=== PATIENT | male | born 1950 | race Caucasian/White ===

== ENCOUNTER → 2023-04-27 07:41 | Outpatient (REF) | payer MEDICARE, SELFPAY | LOC: RAD 07:41 | PROVIDERS: ATTENDING PHYSICIAN Physician Assistant; FAMILY PHYSICIAN Family Medicine | DX: Z13.820 Encounter for screening for osteoporosis (principal); E83.52 Hypercalcemia; M81.0 Age-related osteoporosis without current pathological fracture | CPT/HCPCS: 77080; 77081; 78071; A9500 ==

== ENCOUNTER → 2023-05-10 07:51 | Outpatient (REF) | payer MEDICARE, SELFPAY | LOC: HWRAD 07:51 | PROVIDERS: ATTENDING PHYSICIAN Physician Assistant; FAMILY PHYSICIAN Family Medicine | DX: E83.52 Hypercalcemia (principal) | CPT/HCPCS: 76536 ==

== ENCOUNTER 2023-07-04 06:10 | Day surgery (SDC) | payer MEDICARE, SELFPAY ==
[2023-06-20 08:54] LABS: Hematocrit 39.5 % (39.0-52.0); Hemoglobin 13.2 g/dL (13.0-18.0); Mean Corp Hgb Conc. 33.4 g/dL (33.0-37.0); Mean Corpuscular Hgb 30.1 pg (27.0-31.0); Mean Corpuscular Volume 90.2 fL (80.0-94.0); Mean Platelet Volume 10.1 fL (7.4-10.4); Platelet Count 266 10^3/uL (130-400); Red Blood Cell Count 4.38 10^6/uL (4.70-6.10); Red Cell Dist. Width 12.9 % (11.5-14.5); White Blood Cell Count 6.3 10^3/uL (4.8-10.8)
[2023-06-20 09:03] LABS: INR 1.06; PT 13.6 Sec (11.4-14.6)
[2023-06-20 09:09] VITALS: BMI 29.7
[2023-06-20 09:28] LABS: ALT (SGPT) 37 U/L (0-50); AST (SGOT) 32 U/L (17-59); Albumin 4.3 g/dl (3.5-5.0); Alkaline Phosphatase 109 U/L (38-126); Blood Urea Nitrogen 18 mg/dl (9-20); Calcium 10.6 mg/dl (8.4-10.2); Carbon Dioxide 24 mmol/L (22-30); Chloride 104 mmol/L (98-107); Estimated Creatinine Clearance 50 ml/min; Glucose 126 mg/dl (70-99); Potassium 4.3 mmol/L (3.5-5.1); Sodium 137 mmol/L (135-145); Total Bilirubin 0.5 mg/dl (0.2-1.3); Total Protein 6.8 g/dl (6.3-8.2); eGFR > 60.00
[2023-07-04] VITALS (9 sets, daily range): BP systolic 136–163; BP diastolic 70–87; BMI 29.7
[2023-07-04 06:43] LABS: Glucose - Point of Care 154 mg/dl (70-99)
[2023-07-04] MEDS: NORMOSOL-R 1000 IV (06:46)
[2023-07-04] MEDS: NEURONTIN 300 MG PO (06:46)
[2023-07-04] MEDS: TYLENOL 1000 MG PO (06:46)
[2023-07-04] MEDS: HEPARIN 5000 UNITS SC (06:47)
[2023-07-04 08:30] LABS: Turbo PTH 166.4 pg/ml (13.6-85.8)
[2023-07-04 09:20] LABS: Turbo PTH 42.6 pg/ml (13.6-85.8)
--- NOTE | 2023-07-04 09:30 | OR.RPT ---
Operative Report
Operative Report
Date of Operation: July 04, 2023
Preoperative Diagnosis: �Hyperparathyroidism - E210
Postoperative Diagnosis: Same
Surgeon: Domenic Thomas M.D.
Operation: Minimally Invasive Right Superior Parathyroidectomy - 96331
Anesthesia: GET
Estimated Blood Loss: 3 cc
Drains: None
Specimen: Right superior neck nodule, rule out parathyroid adenoma
Complications: �None
Procedure:
The patient was taken to the operating room and placed in the usual supine position. After adequate general endotracheal anesthesia was established, the patient's neck was extended, prepped, and draped in the typical sterile fashion. A 4 cm
transcervical incision was made two fingerbreadths above the sternal notch. The skin incision was made with the #15 blade, and this was taken through the skin into the subcutaneous tissue. The underlying platysma muscle was divided, and subplatysmal
flaps were created superiorly to the thyroid cartilage and inferiorly to the sternal notch. Strap muscles were identified and at the midline.
Attention was turned to the patient's right side of the neck. The right thyroid lobe was mobilized medially. During this process, the right recurrent laryngeal nerve was identified and preserved throughout the surgery. The right upper neck nodule
was identified and noted to be enlarged, excised, and sent to the pathology department, which showed a hypercellular parathyroid gland. The normal-appearing right inferior parathyroid gland was identified and preserved. The intraoperative PTH levels
normalized.
After obtaining adequate hemostasis, the strap muscles were reapproximated with #3-0 Vicryl in a running fashion. The platysma muscle was reapproximated with #3-0 Vicryl in an interrupted fashion, and the skin was approximated with #4-0 Monocryl in
a running subcuticular fashion. The Steri-Strips and sterile dressings were placed. The patient tolerated the procedure well. The final instrument, needle, and sponge counts were correct. The patient was extubated and transferred to the PACU.
[2023-07-04 09:49] LABS: Glucose - Point of Care 161 mg/dl (70-99)
[2023-07-04 11:21] LABS: Glucose - Point of Care 171 mg/dl (70-99)
== END 2023-07-04 11:50 | disposition home or self-care (01) ==
LOC: SDS 06:10
PROVIDERS: ATTENDING PHYSICIAN Surgery; FAMILY PHYSICIAN Family Medicine
DX: D35.1 Benign neoplasm of parathyroid gland (principal); E21.0 Primary hyperparathyroidism
CPT/HCPCS: 60500; 88305; 88332; 36415; 80053; 82962; 83970; 85027; 85610; 85730; 88331; 93005

== ENCOUNTER → 2023-10-02 12:26 | Outpatient (REF) | payer MEDICARE, SELFPAY | LOC: RAD 12:26 | PROVIDERS: ATTENDING PHYSICIAN Internal Medicine; FAMILY PHYSICIAN Family Medicine | DX: I25.10 Atherosclerotic heart disease of native coronary artery without angina pectoris (principal); I65.29 Occlusion and stenosis of unspecified carotid artery | CPT/HCPCS: 93880 ==

== ENCOUNTER → 2024-08-23 10:56 | Outpatient (REF) | payer MEDICARE, SELFPAY | LOC: HWRCS 10:56 | PROVIDERS: ATTENDING PHYSICIAN Internal Medicine; FAMILY PHYSICIAN Family Medicine | DX: R07.9 Chest pain, unspecified (principal); I25.10 Atherosclerotic heart disease of native coronary artery without angina pectoris; E66.9 Obesity, unspecified; R06.09 Other forms of dyspnea | CPT/HCPCS: 93306 ==

== ENCOUNTER 2024-09-05 06:41 | Day surgery (SDC) | payer MEDICARE, SELFPAY ==
[2024-09-03 10:40] VITALS: BMI 29.9
[2024-09-03 11:10] LABS: Hematocrit 40.6 % (39.0-52.0); Mean Corp Hgb Conc. 34.5 g/dL (33.0-37.0); Mean Platelet Volume 9.6 fL (7.4-10.4); Platelet Count 326 10^3/uL (130-400); Red Blood Cell Count 4.51 10^6/uL (4.70-6.10); Red Cell Dist. Width 12.8 % (11.5-14.5); White Blood Cell Count 8.6 10^3/uL (4.8-10.8)
[2024-09-03 11:26] LABS: ALT (SGPT) 30 U/L (0-50); AST (SGOT) 29 U/L (17-59); Albumin 5.1 g/dl (3.5-5.0); Alkaline Phosphatase 97 U/L (38-126); Blood Urea Nitrogen 21 mg/dl (9-20); Carbon Dioxide 21 mmol/L (22-30); Chloride 109 mmol/L (98-107); Estimated Creatinine Clearance 53 ml/min; Glucose 111 mg/dl (70-99); Potassium 4.6 mmol/L (3.5-5.1); Sodium 141 mmol/L (135-145); Total Bilirubin 0.8 mg/dl (0.2-1.3); Total Protein 7.8 g/dl (6.3-8.2); eGFR 57.29
[2024-09-04 06:00] VITALS: BMI 28.4
[2024-09-05] VITALS (13 sets, daily range): BP systolic 120–165; BP diastolic 63–86; BMI 28.4
[2024-09-05] MEDS: LOW STRENGTH ASPIRIN 81 MG PO (07:36)
[2024-09-05] MEDS: NSS 254 ML IV (07:37)
[2024-09-05 07:39] LABS: Glucose - Point of Care 143 mg/dl (70-99)
--- NOTE | 2024-09-05 08:32 | ITS.CL.CATH ---
Sulfuric Acid Plant Operator - Catheterization
Cardiac Catheterization
Procedure Report:
CARDIAC CATHETERIZATION REPORT
Date of Procedure: 09/05/2024
Referring: Nikita Aviles M.D., Ph.D.
INDICATION: Chest pain, abnormal stress test, known coronary artery disease.
PROCEDURE:
1. Left heart catheterization.
2. Coronary angiography.
A total of 22 minutes of procedural/moderate sedation was utilized. An independent emergency medical technician was present to assist with and help manage the patient's level of consciousness and physiologic status.
ACCESS:
1. 6 [place] right radial artery using a modified Seldinger technique.
CATHETERS:
1. 5 [place] JR4.
2. 5 [place] JL 3.5.
HEMODYNAMIC DATA
Weight (kg): 84.8
AO (s/d/x, mmHg): 140/70/93
LV (s/x mmHg): 140/6 (catheter fling noted on tracing)
LEFT VENTRICULOGRAPHY: Not performed.
CORONARY ANGIOGRAPHY
Dominance: Right.
Left Main: Normal size, trifurcating vessel. There is no coronary artery disease.
LAD: Normal size vessel that is densely calcified and diffusely diseased with a 95% lesion in its ostium and proximal vessel. The distal vessel is supplied by faint collaterals from the RCA.
Ramus: Small to medium size vessel supplying a significant portion of the anterolateral wall. There is no coronary artery disease.
Circumflex: Normal size, nondominant vessel giving rise to 1 obtuse marginal. There are luminal irregularities throughout the vessel. There is a 30% lesion in the ostium of OM1. There is a 30-40% lesion in the midportion of OM1.
RCA: Large size, dominant vessel with a large posterolateral arcade. The entire artery is densely calcified with a 30% lesion in its proximal margin. Collaterals are observed from the septal perforators and terminal vessel supplying the distal
LAD.
INTERVENTION(S)
None.
Closure Device: Vascular band.
Radiation (mGy): 356.48
DAP (cm2.Gy): 25.0235
Fluoroscopy time (minutes): 3.3
CONCLUSIONS
1. Right dominant circulation with dense calcification throughout the entire coronary tree, a 30% lesion in the proximal RCA, a 30% lesion in the proximal OM1, 30-40% lesion in the midportion of OM1 and a 95% lesion in the ostium and proximal LAD
that functions as a PAYROLL EXAMINER. The distal LAD is supplied by faint collaterals from the RCA.
2. Normal filling pressures (LVEDP = 6 mmHg at 84.8 kg).
RECOMMENDATIONS:
1. Expectant management after cardiac catheterization via right radial approach.
2. Limited weight bearing on the right wrist for one week.
3. Consultation with CT surgery regarding optimal strategy including possible MIDCAB versus continued medical therapy.
4. Aggressive secondary prevention. Increase rosuvastatin to 20 mg daily. Goal LDL <55.
5. OMT/GDMT as hemodynamics will tolerate.
Copy to: Nikita Aviles M.D., Ph.D., Gladys Child D.O., ANILA Ascencio
Bakari Izquierdo, , FACC, FACP
== END 2024-09-05 11:36 | disposition home or self-care (01) ==
LOC: CATH 06:41
PROVIDERS: ATTENDING PHYSICIAN Internal Medicine Cardiovascular Disease; FAMILY PHYSICIAN Family Medicine; OTHER PHYSICIAN Internal Medicine
DX: I25.10 Atherosclerotic heart disease of native coronary artery without angina pectoris (principal); R94.39 Abnormal result of other cardiovascular function study; R07.9 Chest pain, unspecified; E78.2 Mixed hyperlipidemia; I10 Essential (primary) hypertension; Z79.82 Long term (current) use of aspirin; Z79.4 Long term (current) use of insulin; Z79.84 Long term (current) use of oral hypoglycemic drugs; Z79.899 Other long term (current) drug therapy; I12.9 Hypertensive chronic kidney disease with stage 1 through stage 4 chronic kidney disease, or unspecified chronic kidney disease; E11.22 Type 2 diabetes mellitus with diabetic chronic kidney disease; N18.31 Chronic kidney disease, stage 3a
CPT/HCPCS: 99152; 36415; 80053; 82962; 85027; 93005; 93458; C1894; Q9967

== ENCOUNTER 2024-10-09 04:50 | Inpatient (IN) | payer MEDICARE, SELFPAY ==
[2024-10-04 08:12] VITALS: BMI 30.9
[2024-10-04 08:47] LABS: Hematocrit 37.3 % (39.0-52.0); Hemoglobin 12.5 g/dL (13.0-18.0); Mean Corp Hgb Conc. 33.5 g/dL (33.0-37.0); Mean Corpuscular Volume 90.5 fL (80.0-94.0); Nucleated Red Blood Cells % 0 % (-); Platelet Count 288 10^3/uL (130-400); Red Cell Dist. Width 12.9 % (11.5-14.5)
[2024-10-04 08:54] LABS: INR 1.05; PT 14.0 Sec (11.4-14.6)
[2024-10-04 08:55] LABS: APTT 27.6 Sec (23.4-35.0)
[2024-10-04 09:02] LABS: Urine Character Clear (Clear)
[2024-10-04 09:08] LABS: ALT (SGPT) 25 U/L (0-50); AST (SGOT) 25 U/L (17-59); Albumin 4.3 g/dl (3.5-5.0); Alkaline Phosphatase 85 U/L (38-126); Blood Urea Nitrogen 18 mg/dl (9-20); Calcium 9.6 mg/dl (8.4-10.2); Carbon Dioxide 20 mmol/L (22-30); Chloride 110 mmol/L (98-107); Estimated Creatinine Clearance 62 ml/min; Glucose 164 mg/dl (70-99); Potassium 4.1 mmol/L (3.5-5.1); Sodium 141 mmol/L (135-145); Total Protein 6.7 g/dl (6.3-8.2); eGFR > 60.00
[2024-10-04 10:21] LABS: Glycohemoglobin (HgbA1c) 7.6 % (4.0-5.6)
--- NOTE | 2024-10-04 11:44 | CM ---
spoke to pt in PAT's we discussed preop CABG instructions including lifting and driving resrtictions. he is prev indep, lives with his in a 2 story homewith 1 step to enter. his has fallen reciently and has balance issues and he helps her
at home. he made arrangements for her sister to stay with her for a while until he is recovered. he has the cardiac educ book, soap and instructions. he is agreeable to a f/u visit from the ct transitional care nurses after dc. cm role explained and
all questions answered. plan is for CT Surgery 10/09, cm to follow.
[2024-10-09] VITALS (39 sets, daily range): BP systolic 107–175; BP diastolic 57–78; PULSE 78; BMI 28.5
[2024-10-09] MEDS: PROTONIX 40 MG PO (05:17)
[2024-10-09] MEDS: LOPRESSOR 25 MG PO (05:17)
[2024-10-09] MEDS: BACTROBAN 2% OINTMENT 1 APPLIC NASAL ×2 (05:18→19:45)
[2024-10-09] MEDS: MAGNESIUM OXIDE 500 MG PO (05:18)
--- NOTE | 2024-10-09 06:08 | W.CVOR.SURPR ---
CVOR Surgeon Immed Pre Op
-
I have examined this patient prior to performance of the scheduled procedure.
The patient's condition is unchanged from the time of the dictated/written History and
Physical and the patient is able to undergo the scheduled procedure.
RA MIDCAB
[2024-10-09 07:42] LABS: Urine Character Slightly Cloudy (Clear)
[2024-10-09 07:45] LABS: ACT+ - POC 145 Seconds (82-134)
[2024-10-09 07:57] LABS: Urine Red Blood Cell >100 /HPF (0-2); Urine Squamous Cell 0-2 /LPF (Few)
[2024-10-09 07:58] LABS: Urine Urothelial Cell 16-20 /LPF (FEW)
--- NOTE | 2024-10-09 08:12 | CM ---
Reviewed chart. Mr. Govea is in the operating room today. Prior to admission he resides with his spouse in a two sto ry home with one step to enter. Prior to admission he was independent with ambulation and adls. His spouse had a recent fall and
her sister will be staying with her to assist in her care while he recovers from surgery. Prior to admission he was independent with ambulation and adls. He has a Bipap machine at home. Medical work-up in progress. The discharge plan is to return
home with his spouse, edelmira staying to [facility] of his spouse and a home visit by the Transitional Care Nurse when medically stable.
[2024-10-09 08:46] LABS: B.E. - POC -3.0 mmol/L; Glucose - POC 130 mg/dl (70-99); HCO3 - POC 22 mmol/L (21-28); Hematocrit - POC 31 % PCV (42-52); Hemodilution- POC No; Hemoglobin Calculated - POC 10.6; Ionized Calcium - POC 1.22 mmol/L (1.15-1.33); Lactate - POC 0.95 mmol/L (0.36-0.75); O2 Saturation %Calculated-POC 99.7 % (94-98); PCO2 - POC 37 mmHg (35-48); PO2 - POC 200 mmHg (83-108); Potassium - POC 3.5 mmol/L (3.5-5.1); Sodium - POC 141 mmol/L (136-145); Specimen Type - POC Arterial; pH - POC 7.38 (7.35-7.45)
[2024-10-09 08:53] LABS: ACT+ - POC 494 Seconds (82-134)
[2024-10-09 09:30] LABS: B.E. - POC -4.1 mmol/L; Glucose - POC 192 mg/dl (70-99); HCO3 - POC 22 mmol/L (21-28); Hematocrit - POC 30 % PCV (42-52); Hemodilution- POC No; Hemoglobin Calculated - POC 10.4; Ionized Calcium - POC 1.21 mmol/L (1.15-1.33); Lactate - POC 1.08 mmol/L (0.36-0.75); O2 Saturation %Calculated-POC 98.4 % (94-98); PCO2 - POC 44 mmHg (35-48); PO2 - POC 124 mmHg (83-108); Potassium - POC 3.9 mmol/L (3.5-5.1); Sodium - POC 141 mmol/L (136-145); Specimen Type - POC Arterial; pH - POC 7.31 (7.35-7.45)
--- NOTE | 2024-10-09 09:36 | W.PN.CT.SURG ---
CT Surgery Operative Note
-
CARDIAC SURGERY OPERATIVE REPORT
Preoperative Diagnosis: Coronary Artery Disease with proximal LAD involvement and chronic total occlusion
Postoperative Diagnosis: Same
Procedure(s) Performed:
1. Robotic assisted MIDCAB (single-vessel bypass RODRIGUEZ in situ to LAD)
2. Robotic assisted harvest of internal mammary artery with anterolateral mini thoracotomy for CABG
3. Transesophageal echocardiography
4. Transonic Flowprobe assessment of RODRIGUEZ graft
Date of Surgery: 10/09/2024
Comorbidities:
1. Coronary artery disease involving the proximal LAD
2. Diabetes
3. Hypertension
4. Hyperlipidemia
5. Multivessel coronary artery disease with significant occlusion of the proximal LAD with right to left collateralization
6. History of skin cancer
Attending Surgeon: Rajinder Waters MD, MS
Assistants: Claudia Vickers PA-C (present and necessary to orthopaedic physician assistant, exchanging robotic instruments, retraction, suction, exposure, suture management, and wound closure under my direction)
Anesthesiology: Yvan Rasmussen MD and Yoly Moore CRNA
Scrub and Circulating RNs: Kamryn French RN, Migue Fam RN
Potato Chip Maker: Shelly Grover CCP
Anesthesia: GETA
EBL: per perfusion records
Products: None
Indication(s) for Procedures: This is a 74-year-old male who has a history of stents in the past as well as CKD stage IIIa. He underwent a PET CT scan that demonstrated abnormal perfusion to the LAD territory demonstrating ischemia. On his left
heart cath he had essentially a chronic total occlusion of the LAD with right to left collateralization. Given the lesion set, he was offered surgical revascularization as his PCI options were limited. The STS risk was discussed with the patient in
the office and the shared decision making was to pursue a single-vessel bypass using his mammary artery to his LAD via a mini invasive approach.
Conduit(s) Quality/Internal Diameter:
RODRIGUEZ -excellent, flow probe analysis, 24 cc/min, PI of 2.5
Target(s) Quality/Internal Diameter:
LAD -average to good, smaller size atretic vessel but there was some retrograde flow leak and see it accommodated a 1.75 mm shunt although it was slightly tight
Findings: His left ventricular ejection fraction preoperatively was normal at 60% with no significant regional wall motion abnormalities. Following surgery his EF remained the same at 60%. There were no new regional wall motion abnormalities at the
inclusion of the case. There was a slight increase in his mitral valve insufficiency to mild to moderate however his blood pressure at this time was over 150 systolic. The RODRIGUEZ was harvested in a skeletonized fashion. The mammary graft was
verified with Doppler probe to have excellent signals. The Transonic flow probe numbers were listed as above.
Description of Procedure: The patient was taken to the operating room. Their identity and procedure to be performed were verified and they were positioned supine on the operating table. Induction via general anesthesia with endotracheal intubation
was performed and central venous access and arterial monitoring were inserted. A preoperative transesophageal echocardiogram was performed to assess cardiac function and valvular function. The patient was then prepped and draped from chin to feet in
a sterile fashion and positioned with left side bumped up and left arm down. A preoperative time-out was performed with all members of the team present. A Veress needle was used to enter the chest after stopping ventilation with the left lung
verified by anesthesia. We started with slow pressure insufflation which they tolerated. An 8 mm port was inserted in the fourth intercostal space laterally and a camera was inserted verifying no intrathoracic iatrogenic injuries. 2 additional
ports(8 mm and 8mm) were placed along the midaxillary line on either side of the camera port. Single 12 mm air seal port was used for the therapist's assistant to pass instruments and sutures. The robotic platform was then docked and targeted towards the
mammary. The mammary was harvested in a skeletonized fashion. A posterior pericardiotomy was created to facilitate drainage. Once sufficient length was obtained, an anterior pericardiotomy was created to identify the distal target. This was marked
with a marker robotically. Full heparinization was given (a total of [] units). 4 Hem-o-efe clips were used to occlude and divide the mammary distally at its bifurcation, and a single silk suture and clip was used to secure the mammary to the
pericardium overlying the LAD target. The robot platform was then undocked and the patient and a left anterior thoracotomy was created over the target vessel. Upon entering the thoracic cavity the mammary and LAD were visible. A thoracotomy
retractor was placed to facilitate exposure and a pericardial well was created. The ACT was confirmed to be over 400.
The cardiac suction stabilizer was used to isolate the LAD target. The distal end of the mammary was prepped and beveled to size. We verified orientation and length of the ELVA and found brisk flow. A coronary arteriotomy was created and enlarged
with coronary kraft scissors. A 2mm shunt was inserted to facilitate exposure and continued coquille coronary perfusion. An end-to-side anastomosis was created with a 7-0 prolene and secured with a micro core knot. The bulldog on the mammary was
removed which demonstrated excellent graft flow. The shunt was then remove and demonstrated excellent coquille flow. Appropriate hemostasis was confirmed. The mammary graft was inspected and was free from kinking or twisting and flowprobe evaluation
demonstrated good flow and PI. A test dose of protamine was administered and the patient was monitored for any adverse reaction before resuming protamine. A 19F zeeshan drain into the pericardium and through the posterior pericardiotomy into the left
chest. Fascia was approximated with #1 vicryl suture. Local analgesia was administered to the surgical sites. The subcutaneous, dermis and epidermis were closed in layers in a running fashion. The skin wound was cleansed and dressed.
All instrument, sponge, and needle counts were confirmed to be correct x 2 at the end of the operation. The patient was transferred to the cardiac intensive care unit extubated in critical but stable condition.
I, Dr. Rajinder Waters, was present, scrubbed for, and performed all critical elements of this procedure.
Rajinder Waters MD, MS
Cardiothoracic Surgeon
[facility]
This operative dictation was created using the [employer] dictation system. Please excuse any grammatical, typographical, or 'sound alike' errors
[2024-10-09 09:37] LABS: ACT+ - POC 129 Seconds (82-134)
--- NOTE | 2024-10-09 09:42 | W.PN.CD ---
Addendum entered and electronically signed by Jose Flores MD 10/09/24 11:49:
Patient seen and examined in collaboration with GREASE MAKER; agree with below.
- 74-year-old male with coronary artery disease status-post robotic MIDCAB today (RODRIGUEZ to LAD).
- Now extubated; on no pressors.
- machine coremaker.
- Routine postoperative care as directed by CT Surgery.
- Will follow.
Original Note:
Today's Communication / Plan
-
Follow telemetry
Impression / Plan
-
I/P: 74M with CAD, HTN, HLD, type II DM, & CKD3a who presents for MIDCAB.
Outpatient physical metallurgist: Dr. Aviles
CAD s/p robotic assisted MIDCAB (single-vessel bypass RODRIGUEZ in situ to LAD) by Dr. Waters on 10/09/2024
- Post LVEF 60% without RWMA (unchanged), slight increase in mitral valve insufficiency mild to moderate with systolic blood pressure was over 150 mmHg
- No products, no inotropes
- EKG with prolonged QT and TWI, EKG in am
- Follow telemetry
Hypertension
- BP stable, follow
CKD 3a, stable, follow
Type 2 diabetes mellitus, Hgba1c 7.6%
Next hyperlipidemia, most recent LDL 50, goal LDL 55, continue rosuvastatin 20 mg
SUBJECTIVE:
Operative report reviewed.
Extubated. Following commands.
Physical Exam
Vital Signs/Labs
Vital Signs
Temp Pulse Resp BP Pulse Ox
98 F 70 14 157/76 100
10/09/24 05:04 10/09/24 05:17 10/09/24 05:04 10/09/24 05:17 10/09/24 05:04
10/08/24 10/09/24 10/10/24
06:59 06:59 06:59
Actual Weight 85.1 kg
10/04/24 08:22
10/04/24 08:22
PT 14.0 Sec (11.4-14.6) 10/04/24 08:21
INR 1.05 10/04/24 08:21
APTT 27.6 Sec (23.4-35.0) 10/04/24 08:21
Physical Exam
Constitutional: No acute distress and Comfortable
EENT: Anicteric and Moist mucous membranes
Cardiovascular: Rhythm & rate is regular, Pedal edema is absent, S1S2 is normal and Rub present
Respiratory: Respiratory effort normal
GI: Soft, Distention absent, Flat, Non tender and Normal bowel sounds
Neuro/Psych: AO x 3
Other: Skin (warm and dry)
Data Reviewed
-
Date of Service: October 09, 2024
Medical Tests (PFT, Pathology etc): Report Reviewed by me
Labs: Labs Reviewed by me
Old Records: Reviewed
[2024-10-09 09:47] LABS: B.E. - POC -3.9 mmol/L; Glucose - POC 180 mg/dl (70-99); HCO3 - POC 23 mmol/L (21-28); Hematocrit - POC 28 % PCV (42-52); Hemodilution- POC No; Hemoglobin Calculated - POC 9.4; Ionized Calcium - POC 1.23 mmol/L (1.15-1.33); Lactate - POC 0.81 mmol/L (0.36-0.75); O2 Saturation %Calculated-POC 99.1 % (94-98); PCO2 - POC 50 mmHg (35-48); PO2 - POC 155 mmHg (83-108); Potassium - POC 3.7 mmol/L (3.5-5.1); Sodium - POC 142 mmol/L (136-145); Specimen Type - POC Arterial; pH - POC 7.27 (7.35-7.45)
[2024-10-09] MEDS: CARDENE 200 IV ×3 (10:10→23:06)
[2024-10-09 10:12] LABS: Glucose - Point of Care 164 mg/dl (70-99)
[2024-10-09] MEDS: ANCEF 10 IV ×2 (10:17)
[2024-10-09 10:25] LABS: B.E. -5.3 mmol/L; HCO3 21.6 mmol/L (21-28); O2 Saturation % 96.6 % (94-98); PCO2 47 mmHg (35-48); PO2 79 mmHg (83-108); Potassium 4.2 mMOL/L (3.5-5.1); Sodium 137 mMOL/L (136-145)
[2024-10-09] MEDS: NSS 500 IV (10:30)
[2024-10-09] MEDS: NOVOLOG FLEXPEN SC ×3 (10:30→15:50)
--- NOTE | 2024-10-09 10:38 | W.PN.UPDATE ---
Update Note
Progress Note Update
74-year-old male was electively admitted on 10/09/2024 for CABG due to abnormal stress and cath that revealed one-vessel coronary disease.
IV fluids: 1500
U.O.:� 100
Blood:� none
Wires:� none
Drips: Cardene @ 2.5, Insulin
�
NEURO: drowsy, HAGER, answers questions appropriately
RESP: Lungs clear B/L. L pleural (30cc on arrival) chest tubes to -20cm suction. Sanguineous drainage, no air leak, no crepitus
CV: RRR +S1, S2, no S3, no�rub, no murmur. Dermabond to left anterior thoracotomy. RIJ w/Slik
ABD: round, soft, no BS
EXT: no edema, +2/4 DP pulses B/L, no femoral bruit, left radial A-line intact
: Morillo with clear yellow urine
�
A/P: POD #0 s/p MIDCAB x 1 RODRIGUEZ-LAD
Pre op EF�55-60%
- Cardene for HTN
# CAD
- will require ASA,Plavix, statin, beta dee
�
# acute surgical blood loss anemia-expected
- trend CBC
�
�
# T2DM (A1C 7.6)
- insulin infusion x 48h
- on Lantus, Farxiga, and MFM at home
- diabetic nurse practitioner consulted for management
�
# Restless leg syndrome
- resume�Requip
# Anxiety
- resume Prozac
[2024-10-09 10:39] LABS: Hematocrit 34.0 % (39.0-52.0); Hemoglobin 11.3 g/dL (13.0-18.0); Platelet Count 283 10^3/uL (130-400)
--- NOTE | 2024-10-09 10:40 | PTCARENOTE ---
Addendum entered by Krystin Muir RN 10/09/24 12:57:
L radial [place] flushed, zeroed, and calibrated.
Original Note:
pt received from CVOR @~1000, oriented but forgetful, drowsy, Tribe. SR on the monitor, HR 70s. no epicardial wires. SBP 150-160s. Cardene gtt started as ordered. CVP ~1-4. weakly palpable DPs, palpable radial pulses. no edema. pt extubated in CV[facility],
placed on 8L Simple mask, POX 93-97%. CTx1, no air leak or crepitus noted. pt abdomen s/n, denies n/v. Morillo in place, clear yellow urine. L chest incision w/ 3 puncture sites E [employer] ARCHITECT. L lateral CT site intact. RIJ cordis w/ slick maintained. PIV.
insulin gtt running as ordered. lab work drawn, EKG performed, CXR completed. see worklist for VS, I&O, and assessment.
[2024-10-09 10:41] LABS: INR 1.18; PT 15.6 Sec (11.4-14.6)
[2024-10-09 10:42] LABS: APTT 27.2 Sec (23.4-35.0)
[2024-10-09 10:48] LABS: Glucose 170 mg/dl (70-99)
[2024-10-09 10:49] LABS: Blood Urea Nitrogen 19 mg/dl (9-20); Estimated Creatinine Clearance 56 ml/min; Magnesium 2.2 mg/dl (1.6-2.3)
[2024-10-09 11:06] LABS: Glucose - Point of Care 172 mg/dl (70-99)
[2024-10-09] MEDS: SODIUM BICARBONATE 50 MEQ IV (11:21)
[2024-10-09] MEDS: NEURONTIN PO (11:31)
[2024-10-09] MEDS: TYLENOL PO (11:47)
--- NOTE | 2024-10-09 11:52 | CON.INTV ---
Consultation
Consultation Request
Date/Time Consultation Requested: 10/09/2024- pm
Date/Time Consultation Performed: 10/09/2024- PM
Requesting Provider: cardiovascular surgery
Performing Provider: Dr. Meza
Reason for Consultation: postop ventilator/critical care management
Medical History
-
Chief Complaint: CAD
History of Present Illness:
74-year-old non-smoking male with a history of hypertension, POLLY on BiPAP, hypertension, and chronic back pain found to have CAD and underwent robotic assisted MIDCAB-paper bundler consulted for postoperative critical care management 10/09/2024.Patient
is sedated, extubated, groggy and review of systems was unreliable. He did not complain of any shortness of breath when asked. Pain was controlled.
Past Medical History
Past Medical History: None ( Hypertension. Diabetes. POLLY on BiPAP. Chronic back pain. Urinary frequency. Hernia repair. Partial thyroidectomy 2023. Mohs surgery. Orchiectomy.)
Social History
Tobacco: Non-smoker
Alcohol: Occasional
Drug: None
Personal:
Living: With Family
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
Occupational Exposures: No known asbestos exposure
Environmental Exposures: no known tuberculosis exposure
Family History
Family History: Reviewed & Not Pertinent ( Father-CAD. Mother-COPD. Brother-melanoma)
Allergies / Home Medications
Allergies
Allergy/AdvReac Type Severity Reaction Status Date / Time
No Known Allergies Allergy Verified 09/05/24 07:05
Home Medications
�Medication �Instructions �Recorded �Confirmed �Last Taken �Type
cholecalciferol (vitamin D3) 50 50 mcg PO QPM 06/29/23 10/09/24 10/01/24 17:00 History
mcg (2,000 unit) capsule (Vitamin
D3)
fluoxetine 40 mg capsule (Prozac) 40 mg PO QPM 06/29/23 10/09/24 10/08/24 17:00 History
insulin glargine 100 unit/mL (3 48 unit SC .LATE AFTERNOON 06/29/23 10/09/24 10/08/24 15:00 History
mL) subcutaneous pen (Lantus
Solostar U-100 Insulin)
melatonin 3 mg tablet 18 mg PO HS 06/29/23 10/09/24 10/08/24 21:00 History
metformin 500 mg tablet,extended 2,000 mg PO DAILY 06/29/23 10/09/24 10/08/24 06:00 History
release 24hr (osmotic)
pantoprazole 40 mg granules 40 mg PO QPM 06/29/23 10/09/24 10/08/24 17:00 History
delayed-release for susp in packet
(Protonix)
ropinirole 1 mg tablet 1 mg PO QPM 06/29/23 10/09/24 10/07/24 17:00 History
aspirin 81 mg chewable tablet 81 mg PO QPM 09/05/24 10/09/24 10/08/24 17:00 History
dapagliflozin propanediol 10 mg 10 mg PO DAILY 09/05/24 10/09/24 10/05/24 08:00 History
tablet
glycine 500 mg capsule 3,000 mg PO DAILY 09/05/24 10/09/24 10/01/24 19:00 History
metoprolol succinate 25 mg 25 mg PO QPM 09/05/24 10/09/24 10/08/24 17:00 History
tablet,extended release 24 hr
rosuvastatin 20 mg tablet 20 mg PO QPM #90 tabs 09/05/24 10/09/24 10/08/24 17:00 Rx
taurine 1,000 mg capsule 2,000 mg PO HS 09/05/24 10/09/24 10/01/24 21:00 History
amlodipine 10 mg tablet 10 mg PO QPM 10/03/24 10/09/24 10/06/24 17:00 History
ibuprofen 200 mg tablet 200 - 400 mg PO Q6H PRN pain 10/03/24 10/09/24 10/05/24 History
iron,carbonyl 65 mg-vitamin C 125 1 tab PO QPM 10/03/24 10/09/24 10/01/24 17:00 History
mg tablet,delayed release
(Vitron-C)
magnesium citrate 3 cap PO HS 10/03/24 10/09/24 10/01/24 21:00 History
Review of Systems
-
Unable to Obtain full review of systems at this time due to: Other ( Per HPI)
Vitals / Labs / Diagnostic Testing
Vital Signs
Temp Pulse Resp BP Pulse Ox
98 F 74 17 125/59 97
10/09/24 11:47 10/09/24 11:30 10/09/24 11:30 10/09/24 10:55 10/09/24 11:49
Lab Data
10/09/24 10:09
Laboratory Results
10/09/24
10:09
PT 15.6 H
INR 1.18
APTT 27.2
pH 7.27 L
pCO2 47
pO2 79 L
HCO3 21.6
O2 Delivery Level
Diagnostic Testing:
Physical Exam
-
Exam:
well-nourished and well-developed in no apparent distress
HEENT-atraumatic, normocephalic, BiPAP mask
Heart-regular rate and rhythm-no murmurs, rubs or gallops
Chest-clear to auscultation, no wheezes, crackles, median sternotomy bandage is not removed
Abdomen soft nondistended
Extremities-no cyanosis, clubbing, edema and good peripheral pulses
Integument-intact, no rashes, lesions or ecchymosis
Neurologically-sedated, moving extremities, nonfocal
Assessment
-
74-year-old non-smoking male with a history of hypertension, POLLY on BiPAP, hypertension, and chronic back pain found to have CAD and underwent robotic assisted MIDCAB-paper bundler consulted for postoperative critical care management 10/09/2024.
CAD with proximal LAD involvement and preserved EF preoperatively
Status post robotic assisted [id number] [id number]-Dr. Waters 10/09/2024
Mild anemia
Hyperglycemia-A1c 7.6%
Conditions present prior to admission:
Hypertension.
Diabetes.
POLLY on BiPAP.
Chronic back pain.
Urinary frequency.
History of skin cancer
Hernia repair. Partial thyroidectomy 2023. Mohs surgery. Orchiectomy.
Plan
Patient successfully extubated in the operating room and now on BiPAP
FiO2 will be weaned
BiPAP will be weaned-patient actually on BiPAP at home
Pressors/antihypertensive/inotropes/diuretics will be provided as needed
Monitor chest tube output
Monitor hemoglobin
Monitor platelet count and coags
Transfuse blood product if needed
CT surgery following chest tubes
Monitor blood sugar
Insulin drip per protocol-preoperative A1c 7.6%
Aspiration precautions
VAP prevention protocol
DVT prophylaxis
Early nutrition
Early mobilization
Outpatient sleep disorders [id number] our office notes-does not follow for sleep apnea/BiPAP with [facility]
Critical care statement: A total of 55 minutes of critical care time was provided for this patient today. This includes management of ventilator, spontaneous breathing trial, arterial blood gases, pressors, of unstable vital signs, evaluation of the
patient at bedside, reviewing the patient's pertinent medical records including radiographs, microbiology, laboratory evaluations, and discussion with primary team and critical care nursing.
Diagnostic data:
Chest x-ray 10/09/20240425-[id number] chest tube present, no pneumothorax
PET myocardial scan 08/20/2024- abnormal perfusion imaging with LAD territory ischemia
Cardiac catheterization 09/05/2024-09/05/24-30% proximal RCA, 30% lesion proximal OM1, 95% proximal LAD lesion
Echocardiogram 08/23/2024-EF 55-60%, aortic sclerosis without stenosis
Data Reviewed
-
EKG: Report reviewed by me
Radiology: Image personally visualized and interpreted and Report reviewed by me
Medical Tests (Nuc Med, Echo etc): Report reviewed by me
Labs: Labs reviewed by me
Old Records: Reviewed
Critical Care Time (in minutes): 55
[2024-10-09] MEDS: OFIRMEV 100 IV (11:53)
--- NOTE | 2024-10-09 12:00 | PTCARENOTE ---
PRECISION DYER aware of ABG results, 1amp Bicarb given as ordered. pt placed on BiPAP 12/6 6L, 97% POX. and friend at bedside. pt c/o incisional pain, Ofirmev given as ordered.
[2024-10-09 12:09] LABS: Glucose - Point of Care 152 mg/dl (70-99)
[2024-10-09 12:28] LABS: B.E. -1.7 mmol/L; HCO3 23.7 mmol/L (21-28); O2 Saturation % 98.9 % (94-98); PCO2 42 mmHg (35-48); PO2 111 mmHg (83-108); Potassium 3.5 mMOL/L (3.5-5.1)
[2024-10-09] MEDS: KCL 50 IV ×2 (12:46→15:30)
[2024-10-09 13:04] LABS: Glucose - Point of Care 147 mg/dl (70-99)
--- NOTE | 2024-10-09 13:15 | PTCARENOTE ---
CLERICAL TRANSCRIBER aware of ABG on BIPAP, per CLERICAL TRANSCRIBER okay to place back on 6LNC, taken off BiPAP @~1250. POX 99% on 6LNC. oriented x4. follows commands. tolerating ice chips.
--- NOTE | 2024-10-09 13:22 | PN.DE.MGMTRT ---
Insulin Management
- -
10/09/2024 Diabetes Management Consult
Patient admitted this AM for CABG. PMH CAD, diabetes, HTN, HLD, POLLY on bipap. Prior to admission was taking lantus 48 units @ 3pm daily, metformin 2000 mg daily and farxiga 10 mg daily. A1C is 7.6%, cr 1.1, eGFR > 60.
Patient is awake but drowsy, recently out of the OR. at bedside and very supportive. Patient confirms the medications for diabetes as listed above.
Currently on glycemic protocol receiving 3.5 to 4 units of insulin per hour.
Will continue glycemic protocol today and evaluate tomorrow for possibility to transition.
Discussed with nurse.
Will follow.
Diabetes History
- -
Type of Diabetes: 2 requiring insulin
Pre-Admission Diabetes Regimen
10/09/24
10:09
Creatinine 1.1
Lab Results
Hemoglobin A1c 7.6 % (4.0-5.6) H 10/04/24 08:22
Insulin Pump Settings
IP Diabetes Regimen
10/09/24 10/09/24 10/09/24
10:08 10:09 11:05
Glucose 170 H
POC Glucose 164 H 172 H
10/09/24 10/09/24
12:06 13:03
Glucose
POC Glucose 152 H 147 H
Patient Education
[2024-10-09] MEDS: CALCIUM GLUCONATE 100 IV (13:48)
[2024-10-09 13:59] LABS: Glucose - Point of Care 108 mg/dl (70-99)
[2024-10-09 14:11] LABS: Hematocrit 34.1 % (39.0-52.0); Hemoglobin 11.7 g/dL (13.0-18.0); Platelet Count 274 10^3/uL (130-400)
[2024-10-09] MEDS: LOW STRENGTH ASPIRIN 81 MG PO (14:18)
[2024-10-09] MEDS: ROXICODONE 5 MG PO ×2 (14:21→19:45)
[2024-10-09 15:04] LABS: Glucose - Point of Care 99 mg/dl (70-99)
[2024-10-09] MEDS: ANCEF 5 IV (15:15)
[2024-10-09] MEDS: PACERONE 200 MG PO ×2 (15:15→21:28)
[2024-10-09] MEDS: NEURONTIN 100 MG PO ×2 (15:15→19:47)
[2024-10-09] MEDS: DILAUDID 0.25 MG IV ×3 (15:15→21:28)
--- NOTE | 2024-10-09 15:47 | PTCARENOTE ---
pt VSS, Cardene gtt running as ordered. AGRICULTURIST aware of H&H results. tolerating sips of water. Roxicodone 5mg and PRN Dilaudid 0.25mg IVP given for pain.
[2024-10-09 17:05] LABS: Glucose - Point of Care 111 mg/dl (70-99)
[2024-10-09] MEDS: CRESTOR 20 MG PO (17:07)
[2024-10-09] MEDS: NORVASC 10 MG PO (17:07)
[2024-10-09] MEDS: LR 250 ML IV (17:32)
--- NOTE | 2024-10-09 17:37 | PTCARENOTE ---
pt OOB to chair w/ 2 person assist, tolerated well. JAR FILLER aware of UO, 250ml LR bolus given per JAR FILLER. IS encouraged, 2500ml.
[2024-10-09 19:19] LABS: Glucose - Point of Care 91 mg/dl (70-99)
[2024-10-09] MEDS: FLEXERIL 5 MG PO (19:44)
[2024-10-09] MEDS: SENOKOT-S 1 TABLET PO (19:44)
--- NOTE | 2024-10-09 20:30 | PTCARENOTE ---
received pt from previous rn. pt sitting in chair at time of assessment. Pt AAOx4, NSR per tele monitor HR 70s. + pulses, trace LE edema, pox 93% on RA, lungs diminished throughout, CTx1, no air leak or crepitus noted. pt abdomen s/n, denies n/v.
Morillo in place, clear yellow urine. L chest incision w/ 3 puncture sites ABUNDIO. L lateral CT site intact. RIJ cordis w/ SLIC infusing KVO. all lines leveled, flushed and calibrated. PIV infusing insulin gtt as ordered. plan of care discussed and
questions encouraged. call patel within reach
[2024-10-09 21:01] LABS: Glucose - Point of Care 125 mg/dl (70-99)
[2024-10-09] MEDS: TYLENOL 1000 MG PO (21:29)
[2024-10-09 23:01] LABS: Glucose - Point of Care 112 mg/dl (70-99)
[2024-10-10] VITALS (25 sets, daily range): BP systolic 104–134; BP diastolic 53–83; PULSE 66; O2SAT 96–97; BMI 29.7
[2024-10-10] MEDS: ANCEF 5 IV ×2 (00:06→08:30)
--- NOTE | 2024-10-10 00:14 | PTCARENOTE ---
pt resting comfortably in chair. NSR per tele monitor. Cardene gtt infusing. UO decreased CTPA made aware. 250 LR given.
[2024-10-10 01:09] LABS: Glucose - Point of Care 98 mg/dl (70-99)
[2024-10-10 02:36] LABS: Hematocrit 33.9 % (39.0-52.0); Hemoglobin 11.6 g/dL (13.0-18.0); Mean Corp Hgb Conc. 34.2 g/dL (33.0-37.0); Mean Corpuscular Volume 89.7 fL (80.0-94.0); Platelet Count 266 10^3/uL (130-400); Red Cell Dist. Width 12.9 % (11.5-14.5)
[2024-10-10 02:58] LABS: Blood Urea Nitrogen 25 mg/dl (9-20); Calcium 9.1 mg/dl (8.4-10.2); Carbon Dioxide 20 mmol/L (22-30); Chloride 110 mmol/L (98-107); Estimated Creatinine Clearance 56 ml/min; Glucose 122 mg/dl (70-99); Magnesium 1.9 mg/dl (1.6-2.3); Potassium 4.4 mmol/L (3.5-5.1); Sodium 137 mmol/L (135-145); eGFR > 60.00
[2024-10-10 03:10] LABS: Glucose - Point of Care 121 mg/dl (70-99)
--- NOTE | 2024-10-10 03:33 | PTCARENOTE ---
routine labs and EKG obtained, NSR per tele monitor HR 70s. assessment remains unchanged.
--- NOTE | 2024-10-10 05:12 | W.PN.CT ---
Today's Communication / Plan
-
-pod #1
-no significant issues overnight
-CT output: 50/245 in 12/24 hrs
-UO decreased overnight- improved after IVF (got total 750 LR)
-Cr stable - 1.1 (1.1 preop)
-d/c slic and a-line
-current meds (ASA, Plavix, Crestor, Lopressor, Amio, Norvasc, Protonix)
-encourage IS, OOB
Assessment / Plan
-
- CAD - s/p Robotic assisted MIDCAB (single-vessel bypass RODRIGUEZ in situ to LAD) on 10/09/[address] Waters, pod #1
- Intraop DELILAH: LVEF 60% pre and post with no significant wma. There was a slight increase in his mitral valve insufficiency to mild to moderate however his blood pressure at this time was over 150 systolic.
- Coronary artery disease involving the proximal LAD
- DM II (HgA1c 7.6)
- Hypertension
- Hyperlipidemia
- Hx coronary stents
- History of skin cancer
- CKD stage IIIa (Cr 1.1-1.3 preop)
- Restless leg syndrome
- Anxiety
- Acute postop blood loss anemia - stable without transfusion
- Acute postop atelectasis
- Acute postop hypovolemia with subsequent hypervolemia
Discussed patient care with: Nursing and Care Team
Subjective
-
Date of Service: October 10, 2024
Objective Data
-
PT 15.6 Sec (11.4-14.6) H 10/09/24 10:09
INR 1.18 10/09/24 10:09
APTT 27.2 Sec (23.4-35.0) 10/09/24 10:09
Vital Signs
Vital Signs
Temp Pulse Resp BP Pulse Ox
100.1 F 61 14 104/58 100
10/10/24 02:00 10/10/24 02:00 10/10/24 02:00 10/10/24 02:00 10/10/24 02:00
CT Intake/Output/Weight
10/09/24 10/09/24 10/10/24
06:59 18:59 06:59
Intake Total 965.4 / 1600.2 634.8 / 1600.2
Output Total 460 / 740 280 / 740
Balance 505.4 / 860.2 354.8 / 860.2
SaO2: 100
Physical Exam
-
General: Awake and AOx3
Cardiovascular: Regular rate & rhythm, No Murmurs and Rub (soft rub)
Respiratory: Clear and Decreased Breath Sounds
Incision: Clean, Dry and Dressing Intact
Extremities: Other (trace edema, 2+ DPs b/l)
Abdomen: soft, nontender, nondistended, + decreased bowel sounds
Data Reviewed
-
Lab Results: Results Reviewed
Medications: Active Meds Reviewed
Chest X-Ray: Report Reviewed and Image Reviewed
ECG: Report Reviewed and Image Reviewed
[2024-10-10 05:20] LABS: Glucose - Point of Care 127 mg/dl (70-99)
[2024-10-10] MEDS: TYLENOL PO (06:02)
--- NOTE | 2024-10-10 06:31 | PTCARENOTE ---
a-line and SLIC removed, Morillo removed at 0610, pt dtv @ 1210.
[2024-10-10] MEDS: TYLENOL 1000 MG PO ×3 (06:45→21:41)
[2024-10-10 07:33] LABS: Glucose - Point of Care 114 mg/dl (70-99)
--- NOTE | 2024-10-10 07:42 | W.PN.INTV ---
Today's Communication / Plan
Recommendations
Wean oxygen
Monitor chest tube output
Discontinue arterial line
Insulin drip
If transition to telemetry then hand wood sander will sign off-call pulmonary if respiratory issues arise
Assessment
-
74-year-old non-smoking male with a history of hypertension, POLLY on BiPAP, hypertension, and chronic back pain found to have CAD and underwent robotic assisted MIDCAB-hand wood sander consulted for postoperative critical care management 10/09/2024.
CAD with proximal LAD involvement and preserved EF preoperatively
Status post robotic assisted [id number]-zvlhrs [id number]-[id number]-WRN-Dr. Waters 10/09/2024
Mild anemia
Hyperglycemia-A1c 7.6%
Conditions present prior to admission:
Hypertension.
Diabetes.
POLLY on BiPAP.
Chronic back pain.
Urinary frequency.
History of skin cancer
Hernia repair. Partial thyroidectomy 2023. Mohs surgery. Orchiectomy.
Plan
Hemodynamically stable, tolerated extubation and weaned off BiPAP
FiO2 will be weaned
Patient maintained on BiPAP at home
Pressors/antihypertensive/inotropes/diuretics will be provided as needed
Monitor chest tube output
Monitor hemoglobin
Monitor platelet count and coags
Transfuse blood product if needed
CT surgery following chest tubes
Monitor blood sugar
Insulin drip per protocol-preoperative A1c 7.6%
Aspiration precautions
VAP prevention protocol
DVT prophylaxis
Early nutrition
Early mobilization
If able to be weaned off insulin drip earlier than the protocol 48 hours then hand wood sander will sign off-call pulmonary if respiratory issues arise
Outpatient sleep disorders fjloni-ly-kuodmit our office notes-does not follow for sleep apnea/BiPAP with [facility]
Critical care statement: A total of 38 minutes of critical care time was provided for this patient today. This includes management of ventilator, spontaneous breathing trial, arterial blood gases, pressors, of unstable vital signs, evaluation of
the patient at bedside, reviewing the patient's pertinent medical records including radiographs, microbiology, laboratory evaluations, and discussion with primary team and critical care nursing.
Diagnostic data:
Chest x-ray 10/09/20242173-mvzk-vzasp chest tube present, no pneumothorax
PET myocardial scan 08/20/2024- abnormal perfusion imaging with LAD territory ischemia
Cardiac catheterization 09/05/2024-09/05/24-30% proximal RCA, 30% lesion proximal OM1, 95% proximal LAD lesion
Echocardiogram 08/23/2024-EF 55-60%, aortic sclerosis without stenosis
Subjective Dataa
Subjective Data
Date of Service:
Date of Service: October 10, 2024
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
Subjective:
tolerated extubation, out of bed, no complaints of shortness of breath, chest pain or abdominal pain
Review of Systems
General: Other ( Per HPI)
Objective Data
Data Reviewed
Vital Signs / I&O / Oxygen:
Vital Signs
Temp Pulse Resp BP Pulse Ox
99.5 F 64 18 120/69 96
10/10/24 06:00 10/10/24 06:15 10/10/24 06:00 10/10/24 06:00 10/10/24 06:15
Intake and Output
10/09/24 10/10/24 10/11/24
06:59 06:59 06:59
Intake Total 1930.0 / 1940.0
Output Total 940 / 940
Balance 990.0 / 1000.0
SaO2 96
Nasal Cannula flow liters per 2
minute
Physical Exam
General: Respiratory Distress (n) and Comfortable
HEENT: Normocephalic, Anicteric and Moist Mucous Membranes
Cardiovascular: Regular Rhythm
Respiratory: Wheeze (n), Crackles (n), Rhonchi (n), Non-Labored Respirations, Accessory Resp Muscle Use (n) and Stridor (n)
GI: Soft, Non Distended and Non Tender
Neurology: Awake, Alert and No Motor Deficits
Skin: Warm, Good Color, Cyanosis, Jaundice (n) and Rash (n)
Labs/Micro/Reports
Lab Data
10/10/24 02:12
10/10/24 02:12
Laboratory Results
10/09/24 10/09/24
10:09 12:06
PT 15.6 H
INR 1.18
APTT 27.2
pH 7.27 L 7.36
pCO2 47 42
pO2 79 L 111 H
HCO3 21.6 23.7
O2 Delivery Level
--- NOTE | 2024-10-10 07:44 | W.PN.ANS.POP ---
Anesthesia Post Operative
- Anesthesia Post Op Note
Vital Signs Stable-See Nursing Note: Yes
Airway Patent: Yes
Adequate Pain Control: Yes (States pain is controlled and patient is OOB to chair. )
Change in Mental Status: No
Current Postoperative Nausea & Vomiting: No
Anesthesia Complications: No
General Anesthetic Recall: No
Unplanned Admission: No
Post Op Hydration Adequate: Yes
--- NOTE | 2024-10-10 08:00 | PTCARENOTE ---
pt received from previous RN, oriented, [facility], hearing aids in place. OOB in chair. SR on the monitor, HR 60s. +rub. SBP 120s. palpable pulses, trace generalized edema. pt on RA, 97% POX. lungs clear, IS 2000ml. CTx1, no air leak or crepitus noted. pt
abdomen s/n, denies n/v. diet tolerated well. voids. L chest incision ABUNDIO, approximated. 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 chest tube site c/d/i. RIJ cordis maintained. PIV. insulin gtt running as ordered. see worklist for VS, I&O, and assessment.
--- NOTE | 2024-10-10 08:22 | PN.DE.MGMTRT ---
Insulin Management
- -
10/10/2024 Diabetes Management Consult Follow up
Patient admitted this AM for CABG. PMH CAD, diabetes, HTN, HLD, POLLY on bipap. Prior to admission was taking lantus 48 units @ 3pm daily, metformin 2000 mg daily and farxiga 10 mg daily. A1C is 7.6%, cr 1.1, eGFR > 60.
POD 1 Patient is awake alert and oriented able to discuss diabetes care. at bedside and very supportive.
Currently on glycemic protocol receiving .8 to 2.6 units of insulin per hour.
Will transition to home regimen today. To receive Farxiga 10 mg now with 2000 mg metformin ER now; at 3pm to receive 48 units lantus, insulin infusion to be stopped 2 hours after insulin administered. Will provide low corrective insulin AC if
needed.
Discussed with nurse.
Will follow.
Diabetes History
- -
Type of Diabetes: 2 requiring insulin
Pre-Admission Diabetes Regimen
10/09/24 10/10/24
10:09 02:12
Creatinine 1.1 1.1
Lab Results
Hemoglobin A1c 7.6 % (4.0-5.6) H 10/04/24 08:22
Insulin Pump Settings
IP Diabetes Regimen
10/09/24 10/09/24 10/09/24
10:08 10:09 11:05
Glucose 170 H
POC Glucose 164 H 172 H
10/09/24 10/09/24 10/09/24
12:06 13:03 13:58
Glucose
POC Glucose 152 H 147 H 108 H
10/09/24 10/09/24 10/09/24
15:03 17:04 19:18
Glucose
POC Glucose 99 111 H 91
10/09/24 10/09/24 10/10/24
20:59 22:58 01:07
Glucose
POC Glucose 125 H 112 H 98
10/10/24 10/10/24 10/10/24
02:12 03:08 05:19
Glucose 122 H
POC Glucose 121 H 127 H
10/10/24
07:31
Glucose
POC Glucose 114 H
Patient Education
[2024-10-10] MEDS: PLAVIX 75 MG PO (08:29)
[2024-10-10] MEDS: LOW STRENGTH ASPIRIN 81 MG PO (08:29)
[2024-10-10] MEDS: NEURONTIN 100 MG PO ×3 (08:30→21:42)
[2024-10-10] MEDS: LOPRESSOR 12.5 MG PO ×2 (08:30→20:07)
[2024-10-10] MEDS: SENOKOT-S 1 TABLET PO ×2 (08:30→20:07)
[2024-10-10] MEDS: PACERONE 200 MG PO ×3 (08:30→21:42)
[2024-10-10] MEDS: MAGNESIUM OXIDE 500 MG PO ×2 (08:30→20:07)
[2024-10-10] MEDS: NOVOLOG FLEXPEN 4 UNITS SC ×2 (08:30→11:34)
[2024-10-10] MEDS: PROTONIX 40 MG PO (08:30)
[2024-10-10] MEDS: LIDOCAINE 4% PATCH 1 PATCH TOPICAL (08:31)
[2024-10-10] MEDS: BACTROBAN 2% OINTMENT 1 APPLIC NASAL ×2 (08:31→20:08)
[2024-10-10 09:00] LABS: Glucose - Point of Care 120 mg/dl (70-99)
[2024-10-10] MEDS: NSS IV (09:40)
--- NOTE | 2024-10-10 10:09 | W.PN.CD ---
Today's Communication / Plan
-
- Remains in sinus rhythm on telemetry; stable.
- Continue routine postoperative management as per CT Surgery.
Impression / Plan
-
I/P: 74M with CAD, HTN, HLD, type II DM, & CKD3a who presents for MIDCAB.
Outpatient accident report clerk: Dr. Aviles
CAD s/p robotic assisted MIDCAB (single-vessel bypass RODRIGUEZ in situ to LAD) by Dr. Waters on 10/09/2024
- Post LVEF 60% without RWMA (unchanged). I am okay with him saving all of
- Remains in sinus rhythm on telemetry; stable.
- Continue routine postoperative management as per CT Surgery.
Hypertension
- Stable/controlled.
CKD 3a
- Remains stable; creatinine normal.
Type 2 diabetes mellitus, Hgba1c 7.6%
Hyperlipidemia
- LDL at goal-- most recent LDL 50 (goal LDL >55).
- Continue rosuvastatin 20 mg.
SUBJECTIVE:
No major events overnight. No cardiac complaints this a.m. Remains in sinus rhythm.
Physical Exam
Vital Signs/Labs
Vital Signs
Temp Pulse Resp BP Pulse Ox
97.8 F 65 18 129/67 97
10/10/24 08:00 10/10/24 10:00 10/10/24 08:00 10/10/24 08:57 10/10/24 09:08
10/09/24 10/10/24 10/11/24
06:59 06:59 06:59
Actual Weight 85.1 kg 88.7 kg
10/10/24 02:12
10/10/24 02:12
PT 15.6 Sec (11.4-14.6) H 10/09/24 10:09
INR 1.18 10/09/24 10:09
APTT 27.2 Sec (23.4-35.0) 10/09/24 10:09
Magnesium 1.9 mg/dl (1.6-2.3) 10/10/24 02:12
Physical Exam
Constitutional: No acute distress and Comfortable
EENT: Anicteric and Moist mucous membranes
Cardiovascular: Rhythm & rate is regular, Pedal edema is absent, Systolic murmur absent and S1S2 is normal
Respiratory: Respiratory effort normal and Lungs clear to auscul.
GI: Soft
Neuro/Psych: AO x 3
Other: Skin (Warm, dry, intact)
Data Reviewed
-
Date of Service: October 10, 2024
EKG: Tracing Personally Visualized and interpreted (Telemetry: Sinus rhythm)
Medical Tests (PFT, Pathology etc): Discussed with Nurse and Discussed with Patient
Labs: Labs Reviewed by me
Critical Care Time (in minutes): 35
[2024-10-10 11:17] LABS: Glucose - Point of Care 134 mg/dl (70-99)
[2024-10-10] MEDS: FARXIGA 10 MG PO (11:31)
[2024-10-10] MEDS: GLUCOPHAGE XR EXTENDED RELEASE 2000 MG PO (11:31)
[2024-10-10] MEDS: NOVOLIN R INSULIN INFUSION 100 IV (11:31)
--- NOTE | 2024-10-10 11:42 | CM ---
Reviewed chart. Met with and Mrs. Govea to review discharge plans. He states he feels well and maybe able to go home soon. He states prior to admission he resides with his spouse in a two story home with one step to enter. He states he has a
full flight of steps to get to bedroom/full bathroom. He states he has a powder room on the first floor. He states prior to admission he was independent with ambulation and adls. He ambulated 125 feet today in the hallway. He states prior to
admission he uses a CPAP Machine at home. His spouse states she ordered a hospital bed and if is in there Den so he could do a first floor set-up if needed. He has a prescription plan and uses [facility] at [facility]. His spouse will be
home to assist in his care if needed. We reviewed a home visit by the Transitional Care Nurse. He is agreeable to a home visit. Medical work-up in progress. The discharge plan is to return home with his spouse and a home visit by the
Transitional Care Nurse when medically stable.
--- NOTE | 2024-10-10 11:54 | PTCARENOTE ---
pt VSS, pt ambulated in hallways. voiding. insulin gtt running as ordered. and sister in law at bedside.
[2024-10-10 12:20] LABS: Glucose - Point of Care 147 mg/dl (70-99)
[2024-10-10 13:22] LABS: Glucose - Point of Care 175 mg/dl (70-99)
[2024-10-10] MEDS: ROXICODONE 5 MG PO (13:24)
--- NOTE | 2024-10-10 13:34 | PTCARENOTE ---
pt placed back to bed, L lateral CT dc'd as ordered, dressing c/d/i. RIJ cordis dc'd as ordered, manual pressure held, dressing c/d/i. pt ambulated in hallway w/ stand by assist.
[2024-10-10 14:20] LABS: Glucose - Point of Care 129 mg/dl (70-99)
[2024-10-10 15:14] LABS: Glucose - Point of Care 82 mg/dl (70-99)
[2024-10-10] MEDS: LANTUS 0.48 UNITS SC (15:14)
--- NOTE | 2024-10-10 16:00 | PTCARENOTE ---
pt VSS, no changes in assessment. OOB to chair for dinner. IS encouraged. oral hygiene performed. voiding in urinal.
[2024-10-10 16:42] LABS: Glucose - Point of Care 81 mg/dl (70-99)
--- NOTE | 2024-10-10 17:00 | PTCARENOTE ---
pt VSS, no changes in assessment. OOB to chair for dinner. IS encouraged. oral hygiene performed. voiding in urinal.
[2024-10-10] MEDS: NORVASC 10 MG PO (17:36)
[2024-10-10] MEDS: CRESTOR 20 MG PO (17:36)
--- NOTE | 2024-10-10 17:44 | PTCARENOTE ---
insulin gtt dc'd 2hr post Lantus administration as ordered. pt ambulated in hallway w/ stand by assist.
[2024-10-10] MEDS: REMOVE LIDOCAINE PATCH 1 PATCH REMOVE (20:07)
--- NOTE | 2024-10-10 20:30 | PTCARENOTE ---
Assumed care of pt from dayshift RN. Walking rounds completed. Pt is AAOx3. Appropriate. SR on the tele monitor. HR 60s. BP stable. Palpable pulses throughout. Trace generalized edema. Pt on RA. POX 93%. Lung sounds diminished B/L. Deep breathing
and IS encouraged. Abdomen round/nontender. +BS. Pt w/ own Dexcom on back on left arm. Pt voiding w/o issue. Left lateral CT site intact. Left chest incision / puncture sites approximated and SHIRRING TENDER. Right forearm IV intact. Pt minimal assist OOB. See
worklist for full nursing assessment and interventions. Call patel within reach.
[2024-10-10] MEDS: FLEXERIL 5 MG PO (21:41)
[2024-10-10 21:47] LABS: Glucose - Point of Care 89 mg/dl (70-99)
--- NOTE | 2024-10-10 23:34 | PTCARENOTE ---
No acute change in assessment. Pt is SR on the tele monitor. HR 60s. BP stable. Pt is 92-93% on RA. All surgical sites stable. No c/o pain at this time. Call patel within reach.
--- NOTE | 2024-10-11 02:53 | W.PN.CT ---
Today's Communication / Plan
-
pod #2
- continue ASA, Plavix, Toprol, Crestor
- glucose controlled on home regime of Lantus, MFM, Farxiga
- check 2-view CXR
- likely home later today
Assessment / Plan
-
- CAD - s/p Robotic assisted MIDCAB (single-vessel bypass RODRIGUEZ in situ to LAD) on 10/09/[address] Waters, pod #2
- Intraop DELILAH: LVEF 60% pre and post with no significant wma. There was a slight increase in his mitral valve insufficiency to mild to moderate however his blood pressure at this time was over 150 systolic.
- Coronary artery disease involving the proximal LAD
- DM II (HgA1c 7.6)
- Hypertension
- Hyperlipidemia
- Hx coronary stents
- History of skin cancer
- CKD stage IIIa (Cr 1.1-1.3 preop)
- Restless leg syndrome
- Anxiety
- Acute postop blood loss anemia - stable without transfusion
- Acute postop atelectasis
- Acute postop hypovolemia with subsequent hypervolemia
Discussed patient care with: Nursing and Care Team
Subjective
Procedure
RA MIDCAB x [address] to LAD [address] Waters 10/09/24
-
Date of Service: October 11, 2024
Objective Data
-
PT 15.6 Sec (11.4-14.6) H 10/09/24 10:09
INR 1.18 10/09/24 10:09
APTT 27.2 Sec (23.4-35.0) 10/09/24 10:09
Vital Signs
Vital Signs
Temp Pulse Resp BP Pulse Ox
98 F 65 18 134/68 92
10/10/24 23:32 10/10/24 23:32 10/10/24 23:32 07/03/25 23:32 10/10/24 23:32
CT Intake/Output/Weight
10/10/24 10/10/24 10/11/24
06:59 18:59 06:59
Intake Total 964.6 / 1940.0 618.7 / 618.7
Output Total 480 / 940 1830 / 3380 1550 / 3380
Balance 484.6 / 1000.0 -1211.3 / -2761.3 -1550 / -2761.3
SaO2: 92
Physical Exam
-
General: AOx3
Cardiovascular: Regular rate & rhythm, No Murmurs, No Rub and No Gallop
Respiratory: Clear
Sternum: Stable
Incision: Clean, Dry and Intact
Extremities: No Edema and No Erythema
Data Reviewed
-
Lab Results: Results Reviewed
Medications: Active Meds Reviewed
Chest X-Ray: Image Reviewed
ECG: Image Reviewed
[2024-10-11 03:32] VITALS: BP 124/69
[2024-10-11 03:45] VITALS: BMI 29.3
--- NOTE | 2024-10-11 04:07 | PTCARENOTE ---
No acute changes in assessment. VSS. Pt is 92-93% on RA. Labs drawn and sent. Pt assisted OOB to void in the bathroom and then repositioned back in bed. No c/o pain at this time. Call patel within reach.
[2024-10-11 04:08] LABS: Hematocrit 35.2 % (39.0-52.0); Hemoglobin 11.8 g/dL (13.0-18.0); Mean Corp Hgb Conc. 33.5 g/dL (33.0-37.0); Mean Corpuscular Volume 92.4 fL (80.0-94.0); Platelet Count 258 10^3/uL (130-400); Red Cell Dist. Width 13.1 % (11.5-14.5)
[2024-10-11 04:25] LABS: Blood Urea Nitrogen 31 mg/dl (9-20); Calcium 9.1 mg/dl (8.4-10.2); Carbon Dioxide 22 mmol/L (22-30); Chloride 110 mmol/L (98-107); Estimated Creatinine Clearance 48 ml/min; Glucose 95 mg/dl (70-99); Magnesium 2.2 mg/dl (1.6-2.3); Potassium 4.8 mmol/L (3.5-5.1); Sodium 139 mmol/L (135-145); eGFR 57.29
[2024-10-11] MEDS: TYLENOL 1000 MG PO (05:40)
[2024-10-11 07:30] LABS: Glucose - Point of Care 98 mg/dl (70-99)
--- NOTE | 2024-10-11 07:47 | W.PN.INTV ---
Today's Communication / Plan
Recommendations
insulin drip will be discontinued
Increase activity
Check chest x-ray
Transfer out of ICU-family support worker will sign off-please call with questions
Assessment
-
74-year-old non-smoking male with a history of hypertension, POLLY on BiPAP, hypertension, and chronic back pain found to have CAD and underwent robotic assisted MIDCAB-family support worker consulted for postoperative critical care management 10/09/2024.
CAD with proximal LAD involvement and preserved EF preoperatively
Status post robotic assisted RJZDFU-ihspxi-texsap vcurjc-MTFQ-SKG-Dr. Waters 10/09/2024
Mild anemia
Hyperglycemia-A1c 7.6%
Conditions present prior to admission:
Hypertension.
Diabetes.
POLLY on BiPAP.
Chronic back pain.
Urinary frequency.
History of skin cancer
Hernia repair. Partial thyroidectomy 2023. Mohs surgery. Orchiectomy.
Plan
Hemodynamically stable, tolerated extubation and weaned off BiPAP
FiO2 will be weaned to room air
Patient maintained on BiPAP at home
Pressors/antihypertensive/inotropes/diuretics will be provided as needed
Chest tubes removed
Hemoglobin stable
Monitor blood sugar
Insulin drip per protocol-preoperative A1c 7.6%- Converted to home regiment
Diabetic diet
Aspiration precautions
VAP prevention protocol
DVT prophylaxis
Increase activity
Patient weaned off insulin drip - family support worker will sign off-call pulmonary if respiratory issues arise
Outpatient sleep disorders [id number]-[id number] our office notes-does not follow for sleep apnea/BiPAP with [facility]
Diagnostic data:
Chest x-ray 10/09/20245965-msxd-melfd chest tube present, no pneumothorax
PET myocardial scan 08/20/2024- abnormal perfusion imaging with LAD territory ischemia
Cardiac catheterization 09/05/2024-09/05/24-30% proximal RCA, 30% lesion proximal OM1, 95% proximal LAD lesion
Echocardiogram 08/23/2024-EF 55-60%, aortic sclerosis without stenosis
Subjective Dataa
Subjective Data
Date of Service:
Date of Service: October 11, 2024
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
Subjective:
no issues with shortness of breath, pain controlled, uneventful night
Review of Systems
General: Other ( per HPI)
Objective Data
Data Reviewed
Vital Signs / I&O / Oxygen:
Vital Signs
Temp Pulse Resp BP Pulse Ox
98.5 F 63 18 124/69 93
10/11/24 03:33 10/11/24 07:00 10/11/24 03:33 10/11/24 03:32 10/11/24 03:33
Intake and Output
10/10/24 10/11/24 10/12/24
06:59 06:59 06:59
Intake Total 1930.0 / 1940.0 618.7 / 618.7
Output Total 940 / 940 3980 / 3980
Balance 990.0 / 1000.0 -3361.3 / -3361.3
SaO2 93
Nasal Cannula flow liters per 2
minute
Physical Exam
General: Respiratory Distress (n) and Comfortable
HEENT: Normocephalic, Anicteric and Moist Mucous Membranes
Cardiovascular: Regular Rhythm
Respiratory: Wheeze (n), Crackles (n), Rhonchi (n), Non-Labored Respirations, Accessory Resp Muscle Use (n) and Stridor (n)
GI: Soft, Non Distended and Non Tender
Neurology: Awake, Alert and No Motor Deficits
Skin: Warm, Good Color, Cyanosis, Jaundice (n) and Rash (n)
Labs/Micro/Reports
Lab Data
10/11/24 03:39
10/11/24 03:39
[2024-10-11 08:39] VITALS: BP 118/54
[2024-10-11] MEDS: SENOKOT-S 1 TABLET PO (08:41)
[2024-10-11] MEDS: GLUCOPHAGE XR EXTENDED RELEASE 2000 MG PO (08:41)
[2024-10-11] MEDS: NEURONTIN 100 MG PO (08:42)
[2024-10-11] MEDS: LOW STRENGTH ASPIRIN 81 MG PO (08:42)
[2024-10-11] MEDS: MAGNESIUM OXIDE 500 MG PO (08:42)
[2024-10-11] MEDS: PACERONE 200 MG PO (08:42)
[2024-10-11] MEDS: FARXIGA 10 MG PO (08:42)
[2024-10-11] MEDS: LIDOCAINE 4% PATCH TOPICAL (08:42)
[2024-10-11] MEDS: PLAVIX 75 MG PO (08:42)
[2024-10-11] MEDS: PROTONIX 40 MG PO (08:42)
--- NOTE | 2024-10-11 08:42 | W.DCSUMMARY ---
Discharge Summary
Discharge Data
Date of Admission: 10/09/24
Date of Discharge: 10/11/24
Total time spent discharging patient (in min): 34
-
Pending Results: No
Hospital Course
Primary care physician: None listed
Outpatient rehabilitation therapy aide: Nikita Aviles
Inpatient consultants: Cardiology, university controller
Procedures:
1. Robotic assisted MIDCAB (RODRIGUEZ�LAD) on 10/09/[address] Rajinder Waters
Primary Diagnosis:
1. Coronary artery disease
Secondary Diagnoses:
1. Acute postoperative blood loss anemia without transfusion
2. Acute postoperative atelectasis
3. Type 2 diabetes
4. Hypertension
5. Hyperlipidemia
6. Chronic kidney disease stage IIIa
7. Restless leg syndrome
8. Anxiety
9. History of skin cancer
HPI: The patient was seen and evaluated in the office for his known history of coronary artery disease. Necessary preoperative risk stratification was obtained and the patient was seen by the attending surgeon and deemed an appropriate surgical
candidate. He was admitted electively for surgery.
Hospital course: Patient underwent robotic assisted MIDCAB with RODRIGUEZ�LAD by Dr. Rajinder Waters on 10/09/2024. Please refer to his separately dictated operative report for complete details. Postoperatively the patient progressed well. He was
initially on Cardene for postoperative hypertension. He was extubated to BiPAP secondary to a respiratory acidosis. He did require 1 amp of sodium bicarbonate postoperatively. He was subsequently weaned to nasal cannula throughout the evening.
Postoperative day 1: Patient remains in normal sinus rhythm. Chest tubes invasive monitoring lines were removed. Patient was transitioned off his insulin drip. He began ambulating. He was weaned to room air.
Postoperative day #2: Patient remained stable on room air. He he will be discharged home today. Discharge instructions were reviewed extensively with the patient and his questions were answered to his satisfaction prior to him leaving today.
Home medication changes: Added Plavix for dual antiplatelet therapy for 1 year. Added oxycodone for 7 days for acute postoperative pain.
Discharge Plan
-
Patient Disposition: Home (Routine Discharge)
Discharge Diagnosis/Procedures: - Coronary artery disease - Status post Robotic assisted MIDCAB (single-vessel bypass RODRIGUEZ in situ to LAD) on 10/09/[address] Waters
- IntraoperativeTEE: LVEF 60% pre and post with no significant Wall motion Abnormalities. There was a slight increase in his mitral valve insufficiency to mild to moderate however his blood pressure at this time was over 150 systolic.
- Coronary artery disease involving the proximal Left anterior descending
- Type 2 diabetes (HgA1c 7.6)
- Hypertension
- Hyperlipidemia
- History ofcoronary stents
- History of skin cancer
- Chronic kidney diseasestage IIIa (Cr 1.1-1.3 preop)
- Restless leg syndrome
- Anxiety
- Acute postop blood loss anemia - stable without transfusion
- Acute postop atelectasis
- Acute postop hypovolemia with subsequent hypervolemia
Diet: Low Cholesterol, Low Sodium and Diabetic, Carb Controlled
Activity: No strenuous activity
Driving Restrictions: No driving for 2 weeks
Bathing Restrictions: OK to Shower
Other Services: Cardiac Rehab
Specialty Instructions: Weigh Daily- Call MD for wt gain/loss 3 lbs overnight/5 lbs in 1 week
Activity Restrictions/Additional Instructions:
ACTIVITY:
-No strenuous activity: no heavy lifting, pushing, pulling anything over 15 pounds for one month
-continue to use stairs as tolerated
DRIVING RESTRICTIONS:
-No driving for one month or until approved by your surgeon
WOUND CARE:
-Shower daily. Use soap & water.
-No lotions, creams or powders on incision area.
DIET:
-continue a low fat/low cholesterol diet.
-IF you are diabetic, continue carb controlled diet.
CARDIAC REHAB:
-Please make appointment to start in 5-6 weeks with your local hospital program. (See Cardiac Rehabilitation Discharge Booklet).
SPECIALTY INSTRUCTIONS:
-Weigh yourself daily. Call your physician for any weight gain/loss of 3 lbs overnight or 5 lbs in one week.
-REPORT any clicking noise or uneven appearance of your sternum to your surgeon immediately.
-If you smoke, you are instructed to quit. The [place] smoking hotline phone number is [phone]
Referrals:
CT Transitional Care Nurse [Outside] - in one to two days
Referral Note:
The Cardiothoracic Transitional Care Nurse will call you to set up a visit in 1-2 days.
[facility] [Outside] - 11/12/24 1:00 pm
Referral Note: Cardiac Rehab Orientation appointment is on November 12 at 1pm.
The Cardiac Rehab gym is located on the first floor of the [facility].
Xiomy Huber NP [Specified Professional Personl, Cardiology] - 11/26/24 9:40 am
Gladys Child DO [Family Provider, Family Practice] - in four to six weeks
Referral Note: Please make an appointment in four to six weeks.
Kelly Tidwell CRNP [Specified Professional Personl, Cardiac Surgery] - 10/21/24 2:00 pm
Prescriptions:
New
clopidogrel 75 mg Tablet
75 mg PO DAILY Qty: 30 2RF
oxycodone 5 mg Tablet
5 mg PO Q4HPRN PRN (Reason: moderate pain) 7 Days Qty: 28 0RF
Continued
fluoxetine [Prozac] 40 mg Capsule
40 mg PO QPM
ibuprofen 200 mg Tablet
200 - 400 mg PO Q6H PRN (Reason: pain)
ropinirole 1 mg Tablet
1 mg PO QPM Qty: 0 0RF
melatonin 3 mg Tablet
18 mg PO HS Qty: 0 0RF
amlodipine 10 mg Tablet
10 mg PO QPM Qty: 0 0RF
aspirin 81 mg Tablet,Chewable
81 mg PO QPM Qty: 0 0RF
metoprolol succinate 25 mg Tablet Extended Release 24 Hr
25 mg PO QPM Qty: 0 0RF
rosuvastatin 20 mg tablet
20 mg PO QPM Qty: 90 5RF
metformin 500 mg Tablet Extended Release 24 Hr
2,000 mg PO DAILY Qty: 0 0RF
glycine 500 mg Capsule
3,000 mg PO DAILY Qty: 0 0RF
insulin glargine [Lantus Solostar U-100 Insulin] 100 unit/mL (3 mL) Insulin Pen
48 unit SC .LATE AFTERNOON Qty: 0 0RF
pantoprazole [Protonix] [address] For Susp In Packet
40 mg PO QPM Qty: 0 0RF
cholecalciferol (vitamin D3) [Vitamin D3] 50 mcg (2,000 unit) Capsule
50 mcg PO QPM Qty: 0 0RF
taurine 1,000 mg Capsule
2,000 mg PO HS Qty: 0 0RF
Vitron-C 65 mg iron- 125 mg Tablet,Delayed Release (Dr/Ec)
1 tab PO QPM Qty: 0 0RF
dapagliflozin propanediol 10 mg Tablet
10 mg PO DAILY Qty: 0 0RF
magnesium citrate 150 mg capsule
3 cap PO HS Qty: 0 0RF
Discharge Orders:
Discharge Patient (As Directed); Ordered 10/11/24
Ordered By: Mike Salinas
Care Plan Goals
Care Plan Goals:
Problem: Readiness for enhanced knowledge related to diagnosis and treatment plan
Goal: Understand your diagnosis and treatment plan needs, including medications if applicable.
Instructions: Know your diagnosis, underlying causes and treatment plan options, including medications if applicable. Consult with your health care team to learn about your diagnosis and treatment plan, including medications if applicable.
Discharge Date and Time
Print Language: CENTRAL AFRICAN
[2024-10-11] MEDS: BACTROBAN 2% OINTMENT 1 APPLIC NASAL (08:43)
--- NOTE | 2024-10-11 08:45 | PTCARENOTE ---
Assumed care of patient at 0700. Pt is awake, alert, and oriented. No complaints of pain at this time. Pt remains SR with HR 72. BP 118/54 MAP 71. Pulse oximetry 94% on room air. Continued use of IS encouraged, pt achieving 2000. Pt tolerating PO
diet. Voiding without issue in urinal. Left lateral incisions approximated with surgical adhesive and ULTRASOUND TECHNOLOGIST SONOGRAPHER. Pt ambulating independently in room without issue, currently OOB in chair with call patel within reach.
[2024-10-11 10:28] VITALS: BP 123/77
--- NOTE | 2024-10-11 11:35 | PTCARENOTE ---
Pt ambulating in boucher independently. Steps completed with RN without issue. 2 view x-ray obtained. Pt showered. Left lateral chest tube site with some serosanguineous drainage, 4x4 g[address]. Discharge order received, reviewed discharge
instructions with pt and pt's . Questions addressed. Peripheral IV and tele monitor removed. Vitals obtained, pt stable at discharge. Escorted pt out via wheelchair.
== END 2024-10-11 11:35 | disposition home or self-care (01) | DRG 236 ==
LOC: CVICU 04:50
PROVIDERS: Anesthesiology; Nurse Practitioner; ADMITTING PHYSICIAN Thoracic Surgery (Cardiothoracic Vascular Surgery); FAMILY PHYSICIAN Family Medicine; OTHER PHYSICIAN Internal Medicine Critical Care Medicine
PROC: B24BZZ4 Ultrasonography of Heart with Aorta, Transesophageal (ICD-10-PCS; 2024-10-09)
PROC: 8E0W0CZ Robotic Assisted Procedure of Trunk Region, Open Approach (ICD-10-PCS; 2024-10-09)
PROC: 02100Z9 Bypass Coronary Artery, One Artery from Left Internal Mammary, Open Approach (ICD-10-PCS; 2024-10-09)
PROC: 5A09357 Assistance with Respiratory Ventilation, Less than 24 Consecutive Hours, Continuous Positive Airway Pressure (ICD-10-PCS; 2024-10-09)
DX: I25.10 Atherosclerotic heart disease of native coronary artery without angina pectoris (principal); D62 Acute posthemorrhagic anemia; J98.11 Atelectasis; E87.29 Other acidosis; I25.82 Chronic total occlusion of coronary artery; I12.9 Hypertensive chronic kidney disease with stage 1 through stage 4 chronic kidney disease, or unspecified chronic kidney disease; E78.5 Hyperlipidemia, unspecified; G25.81 Restless legs syndrome; F41.9 Anxiety disorder, unspecified; G47.33 Obstructive sleep apnea (adult) (pediatric); M54.9 Dorsalgia, unspecified; G89.29 Other chronic pain; E11.65 Type 2 diabetes mellitus with hyperglycemia; N18.31 Chronic kidney disease, stage 3a; E11.22 Type 2 diabetes mellitus with diabetic chronic kidney disease; E86.1 Hypovolemia; E87.70 Fluid overload, unspecified; I34.0 Nonrheumatic mitral (valve) insufficiency; I97.3 Postprocedural hypertension; Z79.4 Long term (current) use of insulin; Z79.82 Long term (current) use of aspirin; Z79.899 Other long term (current) drug therapy; Z82.49 Family history of ischemic heart disease and other diseases of the circulatory system
CPT/HCPCS: 36415; 71045; 71046; 80048; 80053; 81003; 81015; 82248; 82330; 82565; 82805; 82947; 82962; 83036; 83735; 84132; 84302; 84520; 85014; 85018; 85025; 85027; 85049; 85610; 85730; 86850; 86900; 86901; 86920; 87070; 93005; 93312; 93320; 93325; 93880; 94660; J2916

== ENCOUNTER → 2024-10-18 13:12 | Outpatient (REF) | payer MEDICARE, SELFPAY | LOC: RAD 13:12 | PROVIDERS: ATTENDING PHYSICIAN Nurse Practitioner Acute Care; FAMILY PHYSICIAN Family Medicine | DX: Z95.1 Presence of aortocoronary bypass graft (principal) | CPT/HCPCS: 71046 ==

== ENCOUNTER 2024-12-05 09:30 | Outpatient (RCR) | payer MEDICARE, SELFPAY ==
[2024-11-12 14:42] LABS: Glucose - Point of Care 90 mg/dl (70-99)
[2024-11-14 10:09] LABS: Glucose - Point of Care 144 mg/dl (70-99)
[2024-11-14 10:57] LABS: Glucose - Point of Care 121 mg/dl (70-99)
[2024-11-19 10:19] LABS: Glucose - Point of Care 116 mg/dl (70-99)
[2024-11-19 11:00] LABS: Glucose - Point of Care 100 mg/dl (70-99)
[2024-11-21 10:36] LABS: Glucose - Point of Care 97 mg/dl (70-99)
[2024-11-21 10:53] LABS: Glucose - Point of Care 107 mg/dl (70-99)
[2024-11-21 11:23] LABS: Glucose - Point of Care 145 mg/dl (70-99)
[2024-11-25 09:22] LABS: Glucose - Point of Care 138 mg/dl (70-99)
[2024-11-25 10:00] LABS: Glucose - Point of Care 121 mg/dl (70-99)
[2024-11-25 10:15] LABS: Glucose - Point of Care 109 mg/dl (70-99)
[2024-11-28 10:31] LABS: Glucose - Point of Care 150 mg/dl (70-99)
[2024-11-28 11:15] LABS: Glucose - Point of Care 111 mg/dl (70-99)
[2024-12-05 10:30] LABS: Glucose - Point of Care 110 mg/dl (70-99)
[2024-12-05 11:18] LABS: Glucose - Point of Care 106 mg/dl (70-99)
== END 2024-12-05 23:59 | disposition home or self-care (01) ==
LOC: CRHB 09:30
PROVIDERS: ATTENDING PHYSICIAN Internal Medicine
DX: Z95.1 Presence of aortocoronary bypass graft (principal)
CPT/HCPCS: 82962; G0422; G0423

== ENCOUNTER 2025-01-07 14:01 | Outpatient (RCR) | payer MEDICARE, SELFPAY ==
[2024-12-11 15:03] LABS: Glucose - Point of Care 82 mg/dl (70-99)
[2024-12-11 15:19] LABS: Glucose - Point of Care 98 mg/dl (70-99)
[2024-12-17 10:49] LABS: Glucose - Point of Care 158 mg/dl (70-99)
[2024-12-17 11:40] LABS: Glucose - Point of Care 108 mg/dl (70-99)
[2024-12-19 10:27] LABS: Glucose - Point of Care 93 mg/dl (70-99)
[2024-12-24 10:31] LABS: Glucose - Point of Care 129 mg/dl (70-99)
[2024-12-24 11:40] LABS: Glucose - Point of Care 107 mg/dl (70-99)
[2024-12-24 12:09] LABS: Glucose - Point of Care 96 mg/dl (70-99)
[2024-12-27 08:11] LABS: Glucose - Point of Care 131 mg/dl (70-99)
[2024-12-27 09:06] LABS: Glucose - Point of Care 99 mg/dl (70-99)
[2024-12-31 10:31] LABS: Glucose - Point of Care 101 mg/dl (70-99)
[2024-12-31 11:23] LABS: Glucose - Point of Care 120 mg/dl (70-99)
[2025-01-02 10:33] LABS: Glucose - Point of Care 110 mg/dl (70-99)
[2025-01-02 11:23] LABS: Glucose - Point of Care 87 mg/dl (70-99)
[2025-01-02 11:34] LABS: Glucose - Point of Care 89 mg/dl (70-99)
[2025-01-02 11:53] LABS: Glucose - Point of Care 126 mg/dl (70-99)
[2025-01-07 10:15] LABS: Glucose - Point of Care 101 mg/dl (70-99)
[2025-01-07 10:54] LABS: Glucose - Point of Care 131 mg/dl (70-99)
[2025-01-07 11:18] LABS: Glucose - Point of Care 142 mg/dl (70-99)
== END 2025-01-07 23:59 | disposition home or self-care (01) ==
LOC: CRHB 14:01
PROVIDERS: ATTENDING PHYSICIAN Internal Medicine
DX: I25.10 Atherosclerotic heart disease of native coronary artery without angina pectoris (principal); Z95.1 Presence of aortocoronary bypass graft
CPT/HCPCS: 82962; G0422; G0423

== ENCOUNTER 2025-02-06 11:17 | Outpatient (RCR) | payer MEDICARE, SELFPAY ==
[2025-01-09 10:30] LABS: Glucose - Point of Care 122 mg/dl (70-99)
[2025-01-09 11:27] LABS: Glucose - Point of Care 95 mg/dl (70-99)
[2025-01-09 11:40] LABS: Glucose - Point of Care 77 mg/dl (70-99)
[2025-01-09 11:59] LABS: Glucose - Point of Care 114 mg/dl (70-99)
[2025-01-14 10:27] LABS: Glucose - Point of Care 178 mg/dl (70-99)
[2025-01-14 11:22] LABS: Glucose - Point of Care 113 mg/dl (70-99)
[2025-01-16 10:25] LABS: Glucose - Point of Care 143 mg/dl (70-99)
[2025-01-16 11:17] LABS: Glucose - Point of Care 126 mg/dl (70-99)
[2025-01-21 10:45] LABS: Glucose - Point of Care 147 mg/dl (70-99)
[2025-01-21 11:39] LABS: Glucose - Point of Care 132 mg/dl (70-99)
[2025-01-23 10:23] LABS: Glucose - Point of Care 164 mg/dl (70-99)
[2025-01-23 11:13] LABS: Glucose - Point of Care 111 mg/dl (70-99)
[2025-01-28 10:41] LABS: Glucose - Point of Care 148 mg/dl (70-99)
[2025-01-28 11:31] LABS: Glucose - Point of Care 109 mg/dl (70-99)
[2025-02-04 10:37] LABS: Glucose - Point of Care 158 mg/dl (70-99)
[2025-02-04 11:28] LABS: Glucose - Point of Care 143 mg/dl (70-99)
== END 2025-02-06 23:59 | disposition home or self-care (01) ==
LOC: CRHB 11:17
PROVIDERS: ATTENDING PHYSICIAN Internal Medicine
DX: I25.10 Atherosclerotic heart disease of native coronary artery without angina pectoris (principal); Z95.1 Presence of aortocoronary bypass graft
CPT/HCPCS: 82962; G0422; G0423

== ENCOUNTER → 2025-02-10 06:57 | Outpatient (REF) | payer MEDICARE, SELFPAY | LOC: HWRCS 06:57 | PROVIDERS: ATTENDING PHYSICIAN Internal Medicine; FAMILY PHYSICIAN Family Medicine | DX: I25.10 Atherosclerotic heart disease of native coronary artery without angina pectoris (principal); I10 Essential (primary) hypertension; Z95.1 Presence of aortocoronary bypass graft | CPT/HCPCS: 93306 ==

== ENCOUNTER 2025-03-04 10:39 | Outpatient (RCR) | payer MEDICARE, SELFPAY | END 2025-03-04 23:59 | disposition home or self-care (01) | LOC: CRHB 10:39 | PROVIDERS: ATTENDING PHYSICIAN Internal Medicine | DX: I25.10 Atherosclerotic heart disease of native coronary artery without angina pectoris (principal); Z95.1 Presence of aortocoronary bypass graft | CPT/HCPCS: G0422; G0423 ==

== ENCOUNTER 2025-03-13 09:49 | Outpatient (RCR) | payer MEDICARE, SELFPAY | END 2025-03-13 23:59 | disposition home or self-care (01) | LOC: CRHB 09:49 | PROVIDERS: ATTENDING PHYSICIAN Internal Medicine; FAMILY PHYSICIAN Family Medicine | DX: Z95.1 Presence of aortocoronary bypass graft (principal) | CPT/HCPCS: G0422; G0423 ==